=== PATIENT | female | born 1980 ===

== ENCOUNTER 2018-10-03 08:33 | Day surgery (SDC) | payer OTHER ==
[~2018-10-03] VITALS: Ht 162.6 cm; Wt 127.0 kg
[2018-10-03] VITALS (9 sets, daily range): BP systolic 94–118; BP diastolic 52–75
[~2018-10-03 08:33] MED LIST: NKM; ceFAZolin 1gm IVPB IVPB ONE; celeBREX 200mg Cap **SURGERY PATIENTS ONLY ORAL ONE; oxyCONTIN 20mg tab ORAL ONE
[2018-10-03] MEDS ORDERED: HYDROmorphone 1mg/ml Carpuject SUBQ PRN (09:15)
[2018-10-03] MEDS ORDERED: Tylenol #3 tab (300mg/30mg) ORAL PRN (09:15)
[2018-10-03] MEDS ORDERED: HYDROcodone/Acetamin 5/325 tab ORAL PRN (09:15)
--- NOTE | 2018-10-03 09:15 | Operative Note - PDOC ---
Operative Note Operative Note Pre-op Diagnosis: right shoulder impingement Procedure: see op report Post-op Diagnosis: same as pre-op plus Operative Findings: consistent w/pre-op dx studies Anesthesia: regional Specimen: none Complications: none Condition: stable Estimated Blood Loss: none Implant(s) used?: No Augie Trejo MD Oct 03, 2018 09:15
--- NOTE | 2018-10-03 09:15 | Pre-Procedure Note/Attestation ---
Pre-Procedure Note/Attestation Complete Prior to Procedure Planned Procedure: right Procedure Narrative: shoulder arthroscopy, sad Indications for Procedure Pre-Operative Diagnosis: right shoulder impingement Attestation I attest that I discussed the nature of the procedure; its benefits; risks and complications; and alternatives (and the risks and benefits of such alternatives ), prior to the procedure, with the patient (or the patient's legal public utilities sales representative). I attest that, if there was a reasonable possibility of needing a blood transfusion, the patient (or the patient's legal public utilities sales representative) was given the [facility] standardized written summary, pursuant to the [place] Blood Safety Act ([place] Health and Safety Code # 1645, as amended). I attest that I re-evaluated the patient just prior to the surgery and that there has been no change in the patient's H&P, except as documented below: Augie Trejo MD Oct 03, 2018 09:15
[2018-10-03] MEDS ORDERED: oxyCONTIN 20mg tab ORAL ONE (09:24)
[2018-10-03] MEDS ORDERED: Kenalog-40 1ml Vial ONE (11:29)
[2018-10-03] MEDS ORDERED: EPINEPHrine 1mg/1ml Amp ONE (11:29)
[2018-10-03] MEDS ORDERED: Bupivacaine 0.25% Inj 30ml INJ ONE (11:30)
[2018-10-03] MEDS ORDERED: Ketorolac 30mg Inj ONE (11:30)
[2018-10-03] MEDS ORDERED: Bupivacaine 0.5% Inj 30 ml vial INJ ONE (11:31)
[2018-10-03] MEDS ORDERED: fentaNYL 100 mcg/2 mL IV ONE (11:54)
[2018-10-03] MEDS ORDERED: Midazolam 2mg/2ml Inj ONE (11:54)
[2018-10-03] MEDS ORDERED: LR 1000ml ONE (12:00)
[2018-10-03] MEDS ORDERED: NS Irrig 4000ml IRRIG ONE (12:00)
--- NOTE | 2018-10-03 12:59 | Anethesia Preoperative Eval ---
Anesthesia Pre-op PMH/ROS General Date of Evaluation: Oct 03, 2018 Time of Evaluation: 11:45 Anesthesiologist: julio ASA Score: ASA 3 Mallampati Score Class I : Soft palate, uvula, fauces, pillars visible Class II: Soft palate, uvula, fauces visible Class III: Soft palate, base of uvula visible Class IV: Only hard plate visible Mallampati Classification: Class III Surgeon: krishna Diagnosis: shoulder impingment Surgical Procedure: Right shoulder SAD Anesthesia History: none Family History: no anesthesia problems Allergies: Coded Allergies: Cultivated Oat Pollen (Verified Allergy, Intermediate, watery eyes; runny nose, 10/02/18) KETOROLAC (Verified Allergy, Intermediate, rash; vomiting, 10/02/18) LATEX (Verified Allergy, Intermediate, itching; skin blisters, 10/02/18) SHELLFISH DERIVED (Verified Allergy, Intermediate, rash, 10/02/18) Uncoded Allergies: PLASTIC TAPE (Allergy, Intermediate, 10/03/18) BLISTERS, HIVES Medications: see eMAR Patient NPO?: Yes NPO Date: Oct 03, 2018 NPO Time: 00:01 Past Medical History Cardiovascular: Denies: HTN, CAD, NE, valve dz, arrhythmia, other Pulmonary: Denies: asthma, COPD, JACQUELY[place], other Gastrointestinal/Genitourinary: Reports: GERD; Denies: CRI, ESRD, other Neurologic/Psychiatric: Denies: dementia, CVA, depression/anxiety, TIA, other Endocrine: Denies: DM, hypothyroidism, steroids, other HEENT: Denies: cataract (L), cataract (R), glaucoma, [place] (L), [place] (R), other Hematology/Immune: Denies: anemia, DVT, bleeding disorder, other Musculoskeletal/Integumentary: Reports: OA; Denies: RA, DJD, DDD, edema, other Other: obesity, other - cervical radio PMH Narrative: cervical radiculopathy PSxH Narrative: Denies Anesthesia Pre-op Phys. Exam Physician Exam Last Vital Signs Date Time Temp Pulse Resp B/P (MAP) Pulse Ox O2 Delivery O2 Flow Rate FiO2 10/03/18 09:10 Room Air 10/03/18 09:09 98.0 69 18 118/74 98 Constitutional: NAD Neurologic: CN 2-12 intact Cardiovascular: RRR Respiratory: CTA Gastrointestinal: S/NT/ND Airway Exam Mallampati Classification 3 Mallampati Score: Class III MO: limited ROM: limited Dentures: no upper, no lower Anesthesia Pre-op A/P Labs Urine Test Test 10/03/18 08:40 Urine HCG, Qualitative Negative (NEGATIVE) Marti Green CRNA Oct 03, 2018 12:59
[2018-10-03] MEDS ORDERED: Metoclopramide 10mg/2ml Inj IVP PRN (13:00)
[2018-10-03] MEDS ORDERED: fentaNYL 100 mcg/2 mL IV PRN (13:00)
[2018-10-03] MEDS ORDERED: Acetaminophen (Non formulary) 100 ML IV ONE (13:00)
[2018-10-03] MEDS ORDERED: Lidocaine 1% MPF 10mg/ml 5ml ONE (13:03)
[2018-10-03] MEDS ORDERED: Neostigmine 1mg/ml 10ml Inj ONE (13:03)
[2018-10-03] MEDS ORDERED: Propofol 200mg/20ml IV ONE (13:03)
[2018-10-03] MEDS ORDERED: Metoclopramide 10mg/2ml Inj ONE (13:03)
[2018-10-03] MEDS ORDERED: Glycopyrrolate 0.2mg/ml 1ml Vial ONE (13:03)
--- NOTE | 2018-10-03 13:32 | Immediate Post-Op Evaluation ---
Immediate Post-Op Evalulation Immediate Post-Op Evalulation Procedure: right shoulder SAD Date of Evaluation: Oct 03, 2018 Time of Evaluation: 13:30 IV Fluids: 600 Blood Pressure Systolic: 101 Blood Pressure Diastolic: 45 Pulse Rate: 71 Respiratory Rate: 14 O2 Sat by Pulse Oximetry: 95 Temperature (Fahrenheit): 98.1 Nausea: No Vomiting: No Complications none Patient Status: awake, reacts, patent Hydration Status: adequate Drug: ancef Given Within 1 Hr of Incision: Yes Time Given: 12:15 Marti Green CRNA Oct 03, 2018 13:32
--- NOTE | 2018-10-03 14:58 | 48 Hour Post Anesthesia Eval ---
Post Anesthesia Evaluation Procedure: right shoulder SAD Date of Evaluation: Oct 03, 2018 Time of Evaluation: 14:58 Blood Pressure Systolic: 109 0: 75 Pulse Rate: 70 Respiratory Rate: 14 O2 Sat by Pulse Oximetry: 95 Airway: patent Nausea: No Vomiting: No Hydration Status: adequate Cardiopulmonary Status: stabl Mental Status/LOC: patient returned to baseline Follow-up Care/Observations: na Post-Anesthesia Complications: none Follow-up care needed: N/A Marti Green CRNA Oct 03, 2018 14:58
[2018-10-03] MEDS ORDERED: D5 1/2NS 1,000 ML IV SCH (18:00)
[2018-10-03] MEDS ORDERED: Zemuron 50mg/5ml Inj IV ONE (18:59)
--- NOTE | 2018-10-03 19:15 | Operative Note - Dictated ---
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 PROCEDURES: 1. Right shoulder diagnostic arthroscopy. 2. Right shoulder subacromial decompression bursectomy with CA ligament. SURGEON: Augie Trejo M.D. ANESTHESIA: Interscalene with general. INDICATION FOR PROCEDURE: The patient is a pleasant 37-year-old female with progressive right shoulder pain. He had failed conservative treatment and elected to undergo right shoulder diagnostic arthroscopy and subacromial decompression bursectomy. Risks, limitations, expectations, and complications of the procedure were discussed in detail. All questions addressed. DESCRIPTION OF PROCEDURE: After informed consent was obtained, the patient was taken to the operating room and placed under interscalene general anesthesia. Right shoulder was prepped and draped in a sterile manner. Time-out was performed. Posterolateral stab incision was then made. Trocar was introduced into the glenohumeral joint. There is no signs of chondral damage. The anterior labrum appeared to be intact. The subscapularis was intact. The undersurface of the rotator cuff was intact and all the biceps tendon. The camera was repositioned in the subacromial space. There is hypertrophic bursal tissue. The undersurface of the acromion was identified. Acromioplasty was started from lateral to medial and completed from posterior to anterior. Once that was completed, the bursectomy was completed in the posterior axillary pouch. Once that was done, the instruments were removed. Portal sites were closed with 3-0 Monocryl sutures. Steri-Strips and a sterile dressing were applied. The patient was awoken and taken to recovery room with stable vital signs. ESTIMATED BLOOD LOSS: None. COMPLICATIONS: None. SPECIMENS: None. IMPLANTS: None. Augie Trejo M.D. DR: ANDERSON JOB#: [id number] CC: [email or web address]
== END 2018-10-03 15:30 | disposition home or self-care (01) ==
LOC: SUR 08:33
DX: M75.41 Impingement syndrome of right shoulder (principal); K21.9 Gastro-esophageal reflux disease without esophagitis; M19.90 Unspecified osteoarthritis, unspecified site; Z91.040 Latex allergy status; Z91.013 Allergy to seafood; Z88.8 Allergy status to other drugs, medicaments and biological substances
CPT/HCPCS: 29822; 81025; J0171; J0690; J2250; J2405; J2704; J2710; J2765; J3010; J3301; J3490; 94003; 94150